=== PATIENT | male | born 1970 | race Caucasian/White ===

== ENCOUNTER 2019-03-05 06:11 | Day surgery (SDC) | payer BC ==
[2019-02-28 13:21] LABS: Urine Bacteria NONE SEEN /hpf (None Seen); Urine Blood Negative /uL (Negative); Urine Specific Gravity 1.013 (1.001-1.035); Urine WBC <1 /hpf (0 - 3)
[2019-02-28 13:30] LABS: Partial Thromboplastin Time 30.5 sec (23.64-32.05)
[~2019-03-05] VITALS: Ht 172.7 cm; Wt 68.0 kg
[~2019-03-05 06:11] MED LIST: IBUP600T27 PO; TRAM-711 PO
[2019-03-05] MEDS ORDERED: SUCCINYLCHOLINE CHLORIDE 20 MG/ML 10ML VIAL IV ONE (07:02)
[2019-03-05] MEDS ORDERED: MEPERIDINE HCL (25 MG/ML) 1ML VIAL ONE (07:10)
[2019-03-05] MEDS ORDERED: ONDANSETRON HCL 4 MG/2 ML VIAL ONE (07:10)
[2019-03-05] MEDS ORDERED: SODIUM CHLORIDE LOCK 10 ML ONE (07:10)
[2019-03-05] MEDS ORDERED: ROCURONIUM 10MG/ML 10ML VIAL IV ONE (07:10)
[2019-03-05] MEDS ORDERED: fentaNYL CITRATE 100 MCG/2 ML VL ONE (07:10)
[2019-03-05] MEDS ORDERED: MIDAZOLAM HCL 1MG/1ML-2 ML VIAL ONE (07:10)
[2019-03-05] MEDS ORDERED: LIDOCAINE 1% HCL (LOCAL ANESTH.) INJ 20ML MDV ONE (07:11)
[2019-03-05] MEDS ORDERED: BUPIVACAINE HCL 50 ML ONE (07:11)
[2019-03-05] MEDS ORDERED: LIDOCAINE HCL 2% TOP JELLY 5ML TOP ONE (07:12)
[2019-03-05] MEDS ORDERED: LIDOCAINE 2% (LOCAL ANESTH.) PF 5ml SDV ONE (07:12)
[2019-03-05] MEDS ORDERED: ceFAZolin 1GM/50ML 50 ML IV ONE (07:25)
[2019-03-05] MEDS ORDERED: PROPOFOL 10 MG/ML 20 ML IV ONE (07:27)
[2019-03-05] MEDS ORDERED: KETOROLAC TROMETH 15 mg/ml 1ML VL IV ONE (08:00)
[2019-03-05] MEDS ORDERED: HYDROmorphone HCL 2 MG/ML VL IV PRN (08:00)
[2019-03-05] MEDS ORDERED: METOCLOPRAMIDE HCL 5MG/ml INJ 2ml VIAL IV ONE (08:00)
[2019-03-05 09:44] VITALS: BP 139/99
== END 2019-03-05 09:59 | disposition home or self-care (01) ==
LOC: SUR 06:11
DX: K40.91 Unilateral inguinal hernia, without obstruction or gangrene, recurrent (principal); D17.6 Benign lipomatous neoplasm of spermatic cord; F12.90 Cannabis use, unspecified, uncomplicated; M51.26 Other intervertebral disc displacement, lumbar region; Z98.890 Other specified postprocedural states; Z87.891 Personal history of nicotine dependence; Z79.899 Other long term (current) drug therapy
CPT/HCPCS: 36415; 49520; 64425; 81001; 85610; 85730; C1781; J0330; J0690; J2001; J2175; J2250; J2405; J2704; J3010; J3490

== ENCOUNTER 2020-07-05 12:34 | Emergency (ER) | payer BC ==
[~2020-07-05] VITALS: Ht 172.7 cm; Wt 72.6 kg
[2020-07-05 12:37] VITALS: BP 129/83
[2020-07-05 13:41] LABS: Basophils # (auto) 0 10 ^3/uL (0-0.2); Basophils % (auto) 0.8 % (0.0-2.0); Eosinophils # (auto) 0.2 10 ^3/uL (0-0.8); Eosinophils % (auto) 3.7 % (0.0-7.0); Hematocrit 42.9 % (41.0-53.0); Hemoglobin 14.8 g/dL (13.5-17.5); Lymphocytes # (auto) 1.1 10 ^3/uL (0.4-5.4); Lymphocytes % (auto) 20.8 % (10.0-50.0); Mean Corpuscular Hgb Conc. 34.6 g/dL (32.0-36.0); Mean Corpuscular Volume 89.7 fL (80.0-100.0); Monocytes # (auto) 0.3 10 ^3/uL (0-1.3); Monocytes % (auto) 4.9 % (0.0-12.0); Neutrophils # (auto) 3.6 10 ^3/uL (1.6-8.6); Neutrophils % (auto) 69.8 % (37.0-80.0); Platelet Count (auto) 137 10^3/uL (140-450); Red Blood Cells 4.78 10^6/uL (4.5-5.90); Red Cell Distribution Width 12.2 % (11.8-14.3); White Blood Cell 5.1 10^3/uL (4.4-10.8)
[2020-07-05 14:12] LABS: Alanine Aminotransferase 22 U/L (16-61); Albumin 4.5 g/dL (3.4-5.0); Alkaline Phosphatase 68 U/L (45-117); Anion Gap 5 (5-15); Aspartate Aminotransferase 10 U/L (15-37); BUN/Creatinine Ratio 16.5; Blood Urea Nitrogen 14 mg/dL (7-18); Carbon Dioxide 28 mmol/L (21-32); Chloride 105 mmol/L (98-107); GFR African American 124 mL/min; GFR Non-African American 102 mL/min; Glucose 108 mg/dL (74-106); Potassium 3.8 mmol/L (3.5-5.1); Sodium 138 mmol/L (136-145); Total Protein 7.8 g/dL (6.4-8.2)
== END 2020-07-05 19:07 | disposition home or self-care (01) ==
LOC: ER 12:34
DX: R07.89 Other chest pain (principal); F12.10 Cannabis abuse, uncomplicated
CPT/HCPCS: 36415; 71045; 80053; 84443; 84484; 85025